=== PATIENT | female | born 1970 | race Caucasian/White ===

== ENCOUNTER 2024-11-17 09:15 | Emergency (ER) | payer BC ==
[2024-11-17 09:23] VITALS: RESP 18
--- NOTE | 2024-11-17 09:41 | ED ---
Fall HPI - General Chief Complaint: Fall Stated Complaint: Fall/Head Laceration Time Seen by Provider: 11/17/24 09:40 Source: patient, family, RN notes reviewed Mode of arrival: ambulatory Limitations: no limitations - History of Present Illness Initial Comments: 54-year-old female presented to the ER for evaluation of a fall. Patient states she was in her barn this morning and was attempting to open the door. She states the rope attached to the bottom of the door excellently caught her foot causing her to fall backwards. Patient does report she hit her head on a nearby tractor. She denies loss of consciousness or blood thinner use. Patient reports she also landed on her tailbone and is having pain to this region exacerbated by ambulation. Patient is currently reporting mild nausea. She states she has a laceration to the back of her head where impact occurred. Tetanus is not up-to-date. Patient denies any bowel or bladder incontinence, saddle paresthesias, radiation of the pain. Patient has been able to ambulate without difficulties. No other complaints. - Related Data Allergies Allergy/AdvReac Type Severity Reaction Status Date / Time Penicillins Allergy Rash/Hives Verified 11/17/24 09:23 Review of Systems ROS Statement: Those systems with pertinent positive or pertinent negative responses have been documented in the HPI. ROS Other: All systems not noted in ROS Statement are negative. 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 Past Psychological History: Panic Disorder Smoking Status: Never smoker Past Alcohol Use History: Occasional Past Drug Use History: None Reported General Exam Limitations: no limitations General appearance: alert, in no apparent distress Head exam: Present: normocephalic, other (2 cm laceration to left posterior parietal scalp) Eye exam: Present: normal appearance, PERRL, EOMI. Absent: scleral icterus, conjunctival injection, periorbital swelling Pupils: Present: normal accommodation ENT exam: Present: normal exam, normal oropharynx, mucous membranes moist Neck exam: Present: normal inspection. Absent: tenderness, meningismus, lymphadenopathy Respiratory exam: Present: normal lung sounds bilaterally. Absent: respiratory distress, wheezes, rales, rhonchi, stridor Cardiovascular Exam: Present: regular rate, normal rhythm, normal heart sounds. Absent: systolic murmur, diastolic murmur, rubs, gallop, clicks Extremities exam: Present: normal inspection, full ROM, normal capillary refill, other (2+ radial, PT and DP pulses). Absent: tenderness, pedal edema, joint swelling, calf tenderness Back exam: Present: normal inspection, other (Tenderness to coccyx no overlying skin changes) Neurological exam: Present: alert, oriented X3, CN II-XII intact Skin exam: Present: warm, dry, intact, normal color. Absent: rash Course Vital Signs 11/17/24 11/17/24 09:18 10:34 Temperature 97.7 F 98.1 F Pulse Rate 68 60 Respiratory 18 18 Rate Blood Pressure 148/91 130/79 O2 Sat by Pulse 100 98 Oximetry Procedures - Laceration Laceration #1 Consent Obtained: verbal consent Indication: laceration Site: scalp Size (cm): 2 Description: linear Depth: simple, single layer Type of Sutures: other (dermal deon) Number of Sutures: 2 Patient Tolerated Procedure: well Medical Decision Making - Medical Decision Making Was pt. sent in by a medical professional or institution (Dr. PA, [employer], urgent care, hospital, or prison...) When possible be specific @ -No Did you speak to anyone other than the patient for history (EMS, parent, family, police, friend...)? What history was obtained from this source @ -, at bedside, aiding in HPI and past medical history. Did you review nursing and triage notes (agree or disagree)? Why? @ -I reviewed and agree with nursing and triage notes Were old charts reviewed (outside hosp., previous admission, EMS record, old EKG, old radiological studies, urgent care reports/EKG's, prison records)? Report findings @ -No old charts were reviewed Differential Diagnosis (chest pain, altered mental status, abdominal pain women, abdominal pain men, vaginal bleeding, weakness, fever, dyspnea, syncope, headache, dizziness, GI bleed, back pain, seizure, CVA, palpatations, mental health, musculoskeletal)? @ -Fracture, dislocation, contusion, hematoma, intracranial hemorrhage, concussion, abrasion, laceration... this list is not meant to be all-inclusive EKG interpreted by me (3pts min.). @ -[None done X-rays interpreted by me (1pt min.). @ -Coccyx x-ray interpreted by me negative for fractures or dislocations. CT interpreted by me (1pt min.). @ -CT brain negative for acute intracranial process. U/S interpreted by me (1pt. min.). @ -None done What testing was considered but not performed or refused? (CT, X-rays, U/S, labs)? Why? @ -None What meds were considered but not given or refused? Why? @ -None Did you discuss the management of the patient with other professionals (professionals i.e. , PA, [employer], lab, RT, psych nurse, social media specialist, supervisor [employer], teacher, admitting officer, outpatient case manager)? Give summary @ -No Was smoking cessation discussed for >3mins.? @ -No Was critical care preformed (if so, how long)? @ -No Were there social determinants of health that impacted care today? How? (Homelessness, low income, unemployed, alcoholism, drug addiction, transportation, low edu. Level, literacy, decrease access to med. care, skilled nursing, rehab)? @ -No Was there de-escalation of care discussed even if they declined (Discuss DNR or withdrawal of care, Hospice)? DNR status @ -No What co-morbidities impacted this encounter? (DM, HTN, Smoking, COPD, CAD, Cancer, CVA, ARF, Chemo, Hep., AIDS, mental health diagnosis, sleep apnea, morb id obesity)? @ -None Was patient admitted / discharged? Hospital course, mention meds given and route, prescriptions, significant lab abnormalities, going to OR and other pertinent info. @ -Discharge. 54-year-old female presented to the ER for evaluation of a fall. Upon evaluation, vitals stable. Patient in no signs of acute distress patient is laying on her right side as she is complaining of coccyx pain. No acute neurological findings on exam. AxO x3. GCS 15. Exam remarkable for a 2 cm parietal scalp laceration. No active bleeding. Tetanus updated. CT brain completed due to mechanism of head injury and is negative for acute intracranial process. Coccyx x-ray negative. Patient given p.o. Tylenol and Zofran for symptom control in the ER. Wound closed with dermal deon, see note above. I advised removal in 3 to 5 days. Staple care discussed and strict return parameters discussed. Patient discharged in stable condition with follow-up to PCP. Patient verbally expressed understanding and agreement with care plan. Case discussed with ED attending, Dr. Rod. Undiagnosed new problem with uncertain prognosis? @ -No Drug Therapy requiring intensive monitoring for toxicity (Heparin, Nitro, Insulin, Cardizem)? @ -No Were any procedures done? @ -Yes Diagnosis/symptom? @ -Fall/laceration Acute, or Chronic, or Acute on Chronic? @ -Acute Uncomplicated (without systemic symptoms) or Complicated (systemic symptoms)? @ -Uncomplicated Side effects of treatment? @ -No Exacerbation, Progression, or Severe Exacerbation? @ -No Poses a threat to life or bodily function? How? (Chest pain, USA, VT, pneumonia, PE, COPD, DKA, ARF, appy, cholecystitis, CVA, Diverticulitis, Homicidal, Suicidal, threat to staff... and all critical care pts) @ -No - Radiology Data Radiology results: report reviewed, image reviewed Disposition Clinical Impression: Fall, Scalp laceration Disposition: HOME SELF-CARE Condition: Stable Instructions (If sedation given, give patient instructions): Staple Care (ED), Fall Prevention (ED) Additional Instructions: Have deon removed in 3 to 5 days. You may take [id number] ibuprofen and Tylenol for pain control. Follow-up with PCP. Return to the ER for any new or worsening concerns Is patient prescribed a controlled substance at d/c from ED?: No Referrals: None,Stated [Primary Care Provider] - 1-2 days Forms: Area PCPs Time of Disposition: 10:23
[2024-11-17] MEDS: ACETAMINOPHEN TAB 325 MG TAB PO STA (09:45)
[2024-11-17] MEDS: ONDANSETRON ODT 4 MG TAB PO STA (09:45)
[2024-11-17] MEDS: DIPH,PERTUS(ACELL)TETVAC-LF 0.5 ML VIAL IM ONE (09:45)
--- NOTE | 2024-11-17 10:08 | CT ---
EXAMINATION TYPE: CT brain wo con DATE OF EXAM: 11/17/2024 COMPARISON: None CLINICAL INDICATION: Female, 54 years old with history of fall no thinners; PHH, fall, struck back of head on a tractor, on blood thinners CT DLP: 1069.4 mGycm Automated exposure control for dose reduction was used. Findings: The ventricles, basal cisterns and sulci over the convexities are within normal limits and there is n o mass effect or shift of midline structures. No abnormal density is seen throughout the brain parenchyma. The posterior fossa including the brainstem, fourth ventricle and cerebellar pontine angles appear no rmal. Intraorbital contents appear normal and symmetric. Visualized paranasal sinuses and mastoid air cells are well aerated. The calvarium is intact. IMPRESSION: No significant abnormality seen. There is no acute bleed or mass effect. [facility], , 11/17/2024 10:06 AM
--- NOTE | 2024-11-17 10:16 | XR ---
Sacrum and coccyx HISTORY: Pain following fall COMPARISON: None TECHNIQUE: 3 views of sacrum and coccyx were obtained. FINDINGS: There is no fracture of the sacrum or coccyx. The SI joints are unremarkable. There is a grade 2 anterolisthesis of L5 on S1. IMPRESSION: 1. No acute trauma to the sacrum or coccyx. 2. Grade 2 anterolisthesis of L5 on S1. [facility], Workstation: [facility], 11/17/2024 10:13 AM
[2024-11-17 10:36] VITALS: BP 130/79; PULSE 60; TEMP 98.1
== END 2024-11-17 10:36 | disposition home or self-care (01) ==
LOC: EC 09:15
DX: S01.01XA Laceration without foreign body of scalp, initial encounter (principal); Z88.0 Allergy status to penicillin; W01.190A Fall on same level from slipping, tripping and stumbling with subsequent striking against furniture, initial encounter
CPT/HCPCS: 12001; 70450; 72220; 90715; 96372; 99284